=== PATIENT | male | born 1950 | race Asian ===

== ENCOUNTER 2016-09-23 15:44 | Emergency (ER) | payer MEDICARE, OTHER ==
[~2016-09-23] VITALS: Ht 167.6 cm; Wt 69.5 kg
[2016-09-23 15:49] VITALS: Ht 167.6 cm; Wt 69.5 kg
--- NOTE | 2016-09-23 18:20 | ERD ---
ER Documentation Chief Complaint Date/Time DATE: 09/23/16 TIME: 18:07 Chief Complaint 4/10 head pain and dizziness x 1 day sent by PCP for MRI HPI This is a 65 year old male without any stated relevant medical problems presents complaining of dizziness and mild global headache status post ground level fall yesterday. Patient's dog jumped in his lap and he fell backward on his occipital region. Denies loss of consciousness. Admits to nausea. Denies vomiting, lethargy, vision changes. Patient also sustained abrasions to his lower extremities bilaterally without any restricted range of motion. Patient was "referred here to get a brain MRI for dizziness" ROS All systems reviewed and are negative except as per history of present illness. Allergies Allergies: Coded Allergies: No Known Allergy (Verified , 09/23/16) PMhx/Soc Medical and Surgical Hx: pt denies Medical Hx, pt denies Surgical Hx Hx Alcohol Use: No Hx Substance Use: No Hx Tobacco Use: No Smoking Status: Never smoker Physical Exam Vitals Vital Signs Date Time Temp Pulse Resp B/P Pulse Ox O2 Delivery O2 Flow Rate FiO2 09/23/16 15:49 99.2 82 18 143/83 99 Physical Exam GENERAL: well-developed/well-nourished, in no apparent distress, non-toxic appearing HENT: NC/AT, bilateral tympanic membrane is normal with good cone of light, nares patent, oropharynx clear without exudates EYES: Conjunctiva normal, PERRLA, EOMI, no nystagmus noted NECK: Supple, no lymphadenopathy PULM: CTA bilaterally, no rales, rhonchi, or wheezing heard CV: Normal S1S2, RRR, good capillary refill GI: Soft, non-distended, normal bowel sounds, non-tender BACK: No midline tenderness, no masses, No CVAT EXT: No clubbing, cyanosis, or edema NEURO: Alert and orientated to person, place, and time. CN II-IIX intact. Gait and coordination were normal. Hand distribution designer strength were equal and within normal limits SKIN: Intact, normal turgor PSYCH: Normal mood and mentation, patient denied SI Procedures/MDM This is a 65 year old male without any stated relevant medical problems presents complaining of dizziness and mild global headache status post ground level fall yesterday. Patient's dog jumped in his lap and he fell backward on his occipital region. This was mechanical and he did not have any syncopal episode prior to fall. Patient did not have any loss of consciousness. He had a normal neurological exam. He is ambulating well, good coordination, speaking clearly, airways intact. Patient likely has post-concussion headache. No evidence of acute intracranial pathology. CT of the head was done, radiologist stated: 1. No acute intracranial hemorrhage, transcortical infarction or mass effect. 2. Mild intracranial atherosclerosis and chronic small vessel ischemic changes. 3. Mild generalized cerebral volume loss. 4. Minimally prominent pituitary gland. 5. Opacification of left frontal sinus and partial opacification of left ethmoid air cells. I have discussed with patient to return for any worsening signs or symptoms, not improving as expected. Discussed to return to his primary to get referral for neurologist. He understood and agreed with plan Departure Diagnosis: Primary Impression: Head injury Condition: Stable YAN RIVERO PA-C Sep 23, 2016 18:19
--- NOTE | 2016-09-23 18:21 | RADRPT ---
PROCEDURE: CT Brain without. CLINICAL INDICATION: Ground-level fall. Pain. TECHNIQUE: A CT of the brain was performed on multidetector high-resolution CT scanner utilizing a xial sections from the skull base through the vertex without contrast. The scan was reviewed in sof t tissue brain and high frequency resolution bone algorithm windows. Images were reviewed on a high -resolution PACS workstation. One or more the following does reduction techniques were utilized: Aut omated exposure control, adjustment of the mA/ or kV according to patient's size, or use of iterativ e reconstruction technique. The exam CTDI = 44.93 mGy and the DLP = 720.23 mGy-cm. COMPARISON: Brain CT 12/27/2008. FINDINGS: The ventricles and sulci are mildly prominent indicative of volume loss. There is no intracranial he morrhage, mass effect or midline shift. No abnormal intra-axial or extra-axial fluid collections ar e seen. The ng/white matter differentiation is preserved. There are mild scattered foci of hypoattenuation in the white matter, which are nonspecific in etiol ogy but likely reflect chronic small vessel ischemic changes. There are mild intracranial vascular calcifications consistent with atherosclerosis. The pituitary gland is minimally prominent. The visu alized paranasal sinuses demonstrate opacification of left frontal sinus and partial opacification o f left ethmoid air cells. The mastoid air cells are essentially clear. IMPRESSION: 1. No acute intracranial hemorrhage, transcortical infarction or mass effect. 2. Mild intracranial atherosclerosis and chronic small vessel ischemic changes. 3. Mild generalized cerebral volume loss. 4. Minimally prominent pituitary gland. 5. Opacification of left frontal sinus and partial opacification of left ethmoid air cells. RPTAT: AA .Rodger Walton MD, MD Date Time Electronically viewed and signed by .Rodger Walton MD, MD on 09/23/2016 18:20 .N/
[2016-09-23 20:47] VITALS: BP 200/84; PULSE 72; RESP 18
== END 2016-09-23 20:55 | disposition home or self-care (01) ==
LOC: FTE 15:44
DX: S09.90XA Unspecified injury of head, initial encounter (principal); R42 Dizziness and giddiness; W18.39XA Other fall on same level, initial encounter; Y92.9 Unspecified place or not applicable
CPT/HCPCS: 70450

== ENCOUNTER 2018-02-07 10:36 | Emergency (ER) | END 2018-02-07 14:23 | disposition home or self-care (01) ==